=== PATIENT | female | born 1995 | race Caucasian/White ===

== ENCOUNTER 2021-01-31 12:05 | Inpatient (IN) | payer BC, OTHER ==
[~2021-01-31 12:05] MED LIST: Bupivacaine 0.25% 10 ML SDV ONE
[2021-01-31] MEDS ORDERED: Sodium Chloride 0.9% 10 ML Syringe FLUSH PRN (12:08)
[2021-01-31] MEDS ORDERED: Nalbuphine 10 MG/1 ML Vial IVPUSH PRN (12:08)
[2021-01-31] MEDS ORDERED: Ondansetron 4 MG/2 ML SDV IVPUSH PRN (12:08)
--- NOTE | 2021-01-31 12:14 | PCM.LDHP ---
L&D History of Present Illness - General Date of Service: 01/31/21 Admit Problem/Dx: Patient Status Order with Admit Dx/Problem 01/31/21 12:09 Patient Status [ADT] Routine Admission Diagnosis/Problem Admission Diagnosis/Problem Normal in third trimester Source of Information: Patient History Limitations: Reports: No Limitations - History of Present Illness Introduction:: Patient is a 25 y/o at 40 5/7 wks who presents for IOL. Doing well. Good FM. No other concerns - Related Data Allergies/Adverse Reactions: Allergies Allergy/AdvReac Type Severity Reaction Status Date / Time black pepper AdvReac Stomach Verified 05/08/18 12:02 Upset sucrose AdvReac Stomach Verified 05/08/18 12:03 Upset Home Medications: Home Meds Pnv No.95/Ferrous Fum/Folic AC [ Vitamin Tablet] 1 tab PO DAILY 05/04/18 [History] Past Medical History [employer]F [employer] WORK WITH [employer] History: Reports: : 2 Para: 1 LMP (Approximate): - Past Surgical History Musculoskeletal Surgical History: Reports: Arthroscopic Procedure (knee surgery) Social & Family History - Tobacco Use Tobacco Use Status *Q: Never Tobacco User - Alcohol Use Alcohol Use History: No - Recreational Drug Use Recreational Drug Use: No - Sexual History Sexual History: Reports: Single Partner H&P Review of Systems - Review of Systems: Review Of Systems: See Below General: Reports: No Symptoms Pulmonary: Reports: No Symptoms Cardiovascular: Reports: No Symptoms Gastrointestinal: Reports: No Symptoms Genitourinary: Reports: No Symptoms Musculoskeletal: Reports: No Symptoms Psychiatric: Reports: No Symptoms Neurological: Reports: No Symptoms Immunologic: Reports: No Symptoms L&D Exam - Exam Exam: See Below - OB Specific Contraction Intensity: Irritability Movement: Active Heart Tones: Present Heart Tones per Min: 135 Heart Rate (FHR) Variability: Moderate (6-25 bmp) Presentation: Vertex - Martinez Score Martinez Score Cervix Position: Midposition Martinez Score Consistency: Soft Martinez Score Effacement: 51-70% Martinez Score Dilation: 1-2 cm (2-3) Martinez Score 's Station: -2 Martinez Score Total: 7 - Exam General: Alert, Oriented, Cooperative Lungs: Clear to Auscultation, Normal Respiratory Effort Cardiovascular: Regular Rate, Regular Rhythm GI/Abdominal Exam: Soft, Non-Tender Genitourinary: Normal external exam Extremities: Normal Inspection Skin: Warm, Dry, Intact - Patient Data Result Diagrams: 01/31/21 12:28 - Problem List (1) Post-dates SNOMED Code(s): 96312174 ICD Code: O48.0 - POST-TERM Status: Acute Current Visit: Yes Qualifiers: Post-term type: 40-42 weeks gestation Qualified Code(s): O48.0 - Post-term Problem List Initiated/Reviewed/Updated: Yes Orders Last 24hrs: Active Orders 24 hr Category Date Time Status Patient Status [ADT] Routine ADT 01/31/21 12:09 Ordered Communication Order [RC] ASDIRECTED Care 01/31/21 12:09 Ordered Communication Order [RC] ASDIRECTED Care 01/31/21 12:09 Ordered Communication Order [RC] ASDIRECTED Care 01/31/21 12:09 Ordered Non Stress Test [RC] PER UNIT ROUTINE Care 01/31/21 12:09 Ordered Notify Provider [RC] ASDIRECTED Care 01/31/21 12:09 Ordered Notify Provider [RC] PRN Care 01/31/21 12:09 Ordered Peripheral IV Care [RC] . DIRECTED Care 01/31/21 12:09 Ordered Up ad Nicky [RC] ASDIRECTED Care 01/31/21 12:09 Ordered Vaginal Exam [RC] ASDIRECTED Care 01/31/21 12:09 Ordered Vital Signs [RC] ASDIRECTED Care 01/31/21 12:09 Ordered Regular Diet [DIET] Diet 01/31/21 Lunch Ordered CBC W/O DIFF,HEMOGRAM [HEME] Routine Lab 01/31/21 12:08 Ordered CORONAVIRUS COVID-19 ROXI [MOLEC] Routine Lab 01/31/21 12:13 Ordered HEP C VIRUS AB [REF] Routine Lab 01/31/21 12:12 Ordered RAPID PLASMA REAGIN,RPR [CHEM] Routine Lab 01/31/21 12:09 Ordered TYPE AND SCREEN [BBK] Routine Lab 01/31/21 12:08 Ordered Lactated Ringers [Ringers, Lactated] 1,000 ml Med 01/31/21 12:15 Ordered IV ASDIRECTED Nalbuphine [Nubain] Med 01/31/21 12:08 Ordered 10 mg IVPUSH Q2H PRN Ondansetron [Zofran] Med 01/31/21 12:08 Ordered 4 mg IVPUSH Q4H PRN Oxytocin/Lactated Ringers [Pitocin in LR 10 Units/1,000 Med 01/31/21 12:15 Ordered ML] 10 unit in 1,000 ml IV .CONTINUOUS Oxytocin/Lactated Ringers [Pitocin in LR 10 Units/1,000 Med 01/31/21 12:15 Ordered ML] 10 unit in 1,000 ml IV TITRATE Sodium Chloride 0.9% [Saline Flush] Med 01/31/21 12:08 Ordered 10 ml FLUSH ASDIRECTED PRN Electronic Heart Tones Internal [WOMSER] Per Unit Oth 01/31/21 12:09 Ordered Routine Peripheral IV Insertion Adult [OM.PC] Routine Oth 01/31/21 12:09 Ordered Resuscitation Status Routine Resus Stat 01/31/21 12:08 Ordered Medication Orders Oxytocin/Lactated Ringer's (Pitocin In Lr 10 Units/1,000 Ml) 10 unit in 1,000 mls @ 12 mls/hr IV TITRATE BRAULIO; Protocol Oxytocin/Lactated Ringer's (Pitocin In Lr 10 Units/1,000 Ml) 10 unit in 1,000 mls @ 500 mls/hr IV .CONTINUOUS BRAULIO Lactated Ringer's (Ringers, Lactated) 1,000 mls @ 40 mls/hr IV ASDIRECTED BRAULIO Nalbuphine HCl (Nalbuphine 10 Mg/1 Ml Vial) 10 mg IVPUSH Q2H PRN PRN Reason: Pain Ondansetron HCl (Ondansetron 4 Mg/2 Ml Sdv) 4 mg IVPUSH Q4H PRN PRN Reason: Nausea/Vomiting Sodium Chloride (Sodium Chloride 0.9% 10 Ml Syringe) 10 ml FLUSH ASDIRECTED PRN PRN Reason: Keep Vein Open Assessment/Plan Comment:: * Labs * GBS negative * AROM and pitocin for IOL * Pain management per patient preference * Anticipate
[2021-01-31] MEDS ORDERED: Oxytocin/Lactated Ringers 10 UNIT/1,000 ML BAG IV SCH ×2 (12:15)
[2021-01-31] MEDS ORDERED: Bupivacaine/fentaNYL/NS 100 ML Bag EPIDUR PRN (12:19)
[2021-01-31] MEDS ORDERED: fentaNYL 100 MCG/2 ML SDV EPIDUR PRN (12:19)
[2021-01-31] MEDS ORDERED: ePHEDrine 50 MG/ML SDV IVPUSH PRN (12:19)
[2021-01-31] MEDS ORDERED: diphenhydrAMINE 50 MG/ML SDV IVPUSH PRN (12:19)
[2021-01-31] MEDS: Lactated Ringers 1,000 ML IV SCH ×4 (14:59→16:59)
--- NOTE | 2021-01-31 15:07 | PCM.PREANE ---
Preanesthetic Assessment - Procedure Proposed Procedure: oscar - Anesthesia/Transfusion/Family Hx Anesthesia History: Prior Anesthesia Without Reaction Family History of Anesthesia Reaction: No Transfusion History: No Prior Transfusion(s) Type of Transfusion Reactions: Reports: Unknown - Review of Systems General: No Symptoms Pulmonary: No Symptoms Cardiovascular: No Symptoms Gastrointestinal: No Symptoms Neurological: No Symptoms Other: Reports: None - Physical Assessment Vital Signs: Last Vital Signs Temp 99.2 F 01/31/21 12:09 Pulse 124 H 01/31/21 12:09 Resp 16 01/31/21 12:09 BP 114/75 01/31/21 12:09 Pulse Ox 95 01/31/21 12:09 Height: 5 ft 4 in Weight: 73.936 kg ASA Class: 2 Mental Status: Alert & Oriented x3 Airway Class: Mallampati = 1 Dentition: Reports: Normal Dentition Thyro-Mental Finger Breadths: 3 Mouth Opening Finger Breadths: 3 Lungs: Clear to Auscultation, Normal Respiratory Effort Cardiovascular: Regular Rate, Regular Rhythm - Lab Values: Laboratory Last Values WBC 10.21 K/mm3 (3.98-10.04) H 01/31/21 12:28 RBC 3.75 M/mm3 (3.98-5.22) L 01/31/21 12:28 Hgb 10.9 gm/dl (11.2-15.7) L D 01/31/21 12:28 Hct 32.6 % (34.1-44.9) L 01/31/21 12:28 MCV 86.9 fl (79.4-94.8) 01/31/21 12:28 MCH 29.1 pg (25.6-32.2) 01/31/21 12:28 MCHC 33.4 g/dl (32.2-35.5) 01/31/21 12:28 RDW Std Deviation 38.9 fL (36.4-46.3) 01/31/21 12:28 Plt Count 195 K/mm3 (182-369) 01/31/21 12:28 MPV 11.1 fl (9.4-12.3) 01/31/21 12:28 SARS-CoV-2 RNA (ROXI) Negative (NEGATIVE) 01/31/21 12:55 Blood Type A POSITIVE 01/31/21 12:28 Gel Antibody Screen Negative 01/31/21 12:28 - Allergies Allergies/Adverse Reactions: Allergies Allergy/AdvReac Type Severity Reaction Status Date / Time black pepper AdvReac Stomach Verified 05/08/18 12:02 Upset sucrose AdvReac Stomach Verified 05/08/18 12:03 Upset - Blood Blood Available: No - Acknowledgements Anesthesia Type Planned: Epidural Pt an Appropriate Candidate for the Planned Anesthesia: Yes Alternatives and Risks of Anesthesia Discussed w Pt/Guardian: Yes Pt/Guardian Understands and Agrees with Anesthesia Plan: Yes PreAnesthesia Questionnaire Cardiovascular History: Reports: None Respiratory History: Reports: None Gastrointestinal History: Reports: None [employer] History: Reports: : 2 Para: 1 Musculoskeletal History: Reports: Other (See Below) Other Musculoskeletal History: knee surgery in 2007 Neurological History: Reports: None Psychiatric History: Reports: None Endocrine/Metabolic History: Reports: None Oncologic (Cancer) History: Reports: None - Past Surgical History Musculoskeletal Surgical History: Reports: Arthroscopic Procedure Dermatological Surgical History: Reports: None - SUBSTANCE USE Tobacco Use Status *Q: Never Tobacco User Tobacco Use Within Last Twelve Months: No Second Hand Smoke Exposure: No Days Per Week of Alcohol Use: 3 Recreational Drug Use History: No - HOME MEDS Home Medications: Home Meds Pnv No.95/Ferrous Fum/Folic AC [ Vitamin Tablet] 1 tab PO DAILY 05/04/18 [History] - CURRENT (IN HOUSE) MEDS Current Meds: Current Medications Diphenhydramine HCl (Diphenhydramine 50 Mg/Ml Sdv) 25 mg IVPUSH Q6H PRN PRN Reason: pruritis Ephedrine Sulfate (Ephedrine 50 Mg/Ml Sdv) 5 mg IVPUSH ASDIRECTED PRN PRN Reason: Hypotension Fentanyl (Fentanyl 100 Mcg/2 Ml Sdv) 100 mcg EPIDUR Q3H PRN PRN Reason: Pain Last Admin: 01/31/21 15:00 Dose: 100 mcg Documented by: Fentanyl/Bupivacaine HCl (Bupivacaine/Fentanyl/Ns 100 Ml Bag) 100 ml EPIDUR ASDIRECTED PRN PRN Reason: Pain Last Admin: 01/31/21 15:00 Dose: 100 ml Documented by: Oxytocin/Lactated Ringer's (Pitocin In Lr 10 Units/1,000 Ml) 10 unit in 1,000 mls @ 12 mls/hr IV TITRATE BRAULIO; Protocol Oxytocin/Lactated Ringer's (Pitocin In Lr 10 Units/1,000 Ml) 10 unit in 1,000 mls @ 500 mls/hr IV .CONTINUOUS BRAULIO Lactated Ringer's (Ringers, Lactated) 1,000 mls @ 40 mls/hr IV ASDIRECTED BRAULIO Last Admin: 01/31/21 14:59 Dose: 40 mls/hr Documented by: Nalbuphine HCl (Nalbuphine 10 Mg/1 Ml Vial) 10 mg IVPUSH Q2H PRN PRN Reason: Pain Ondansetron HCl (Ondansetron 4 Mg/2 Ml Sdv) 4 mg IVPUSH Q4H PRN PRN Reason: Nausea/Vomiting Sodium Chloride (Sodium Chloride 0.9% 10 Ml Syringe) 10 ml FLUSH ASDIRECTED PRN PRN Reason: Keep Vein Open
--- NOTE | 2021-01-31 19:17 | PCM.DEL ---
L & D Note - General Info Date of Service: 01/31/21 - Delivery Note Labor: Induced by ARM, Induced by Oxytocin Delivery Outcome: Livebirth Infant Delivery Method: Spontaneous Vaginal Delivery-Single Infant Delivery Mode: Spontaneous Presentation: Left Occiput Anterior (OLEG) Nuchal Cord: Present, Reduced Anesthesia Type: Epidural Amniotic Fluid Description: Clear Episiotomy Type: None Laceration: None Placenta: Intact, Spontaneous Cord: 3 Vessels Estimated Blood Loss: 100 : Bulb Syringe, Stimulated, Warmed, [place] Used, Warmer Used Delivery Comments (Free Text/Narrative):: Patient found to be complete and began pushing. With maternal pushing effort head delivered from OLEG presentation. Nuchal cord present and reduced. With gentle downward traction shoulders and body delivered. placed on maternal abdomen. Cord clamped and cut. Cord blood obtained. placenta allowed time to separate and expelled intact. Inspection of perineum showed no lacerations - General Info Date of Service: 01/31/21 - Patient Data Vitals - Most Recent: Last Vital Signs Temp 37.3 C 01/31/21 12:09 Pulse 124 H 01/31/21 12:09 Resp 16 01/31/21 12:09 BP 114/75 01/31/21 12:09 Pulse Ox 95 01/31/21 12:09 Weight - Most Recent: 73.936 kg Lab Results Last 24 Hours: Laboratory Results - last 24 hr 01/31/21 01/31/21 01/31/21 Range/Units 12:28 12:28 12:28 WBC 10.21 H (3.98-10.04) K/mm3 RBC 3.75 L (3.98-5.22) M/mm3 Hgb 10.9 L D (11.2-15.7) gm/dl Hct 32.6 L (34.1-44.9) % MCV 86.9 (79.4-94.8) fl MCH 29.1 (25.6-32.2) pg MCHC 33.4 (32.2-35.5) g/dl RDW Std Deviation 38.9 (36.4-46.3) fL Plt Count 195 (182-369) K/mm3 MPV 11.1 (9.4-12.3) fl RPR Non-reactive (NONREACTIVE) SARS-CoV-2 RNA (ROXI) (NEGATIVE) Blood Type A POSITIVE Gel Antibody Screen Negative 01/31/21 Range/Units 12:55 WBC (3.98-10.04) K/mm3 RBC (3.98-5.22) M/mm3 Hgb (11.2-15.7) gm/dl Hct (34.1-44.9) % MCV (79.4-94.8) fl MCH (25.6-32.2) pg MCHC (32.2-35.5) g/dl RDW Std Deviation (36.4-46.3) fL Plt Count (182-369) K/mm3 MPV (9.4-12.3) fl RPR (NONREACTIVE) SARS-CoV-2 RNA (ROXI) Negative (NEGATIVE) Blood Type Gel Antibody Screen Med Orders - Current: Current Medications Diphenhydramine HCl (Diphenhydramine 50 Mg/Ml Sdv) 25 mg IVPUSH Q6H PRN PRN Reason: pruritis Ephedrine Sulfate (Ephedrine 50 Mg/Ml Sdv) 5 mg IVPUSH ASDIRECTED PRN PRN Reason: Hypotension Last Admin: 01/31/21 17:16 Dose: 5 mg Documented by: Fentanyl (Fentanyl 100 Mcg/2 Ml Sdv) 100 mcg EPIDUR Q3H PRN PRN Reason: Pain Last Admin: 01/31/21 15:00 Dose: 100 mcg Documented by: Fentanyl/Bupivacaine HCl (Bupivacaine/Fentanyl/Ns 100 Ml Bag) 100 ml EPIDUR ASDIRECTED PRN PRN Reason: Pain Last Admin: 01/31/21 15:00 Dose: 100 ml Documented by: Oxytocin/Lactated Ringer's (Pitocin In Lr 10 Units/1,000 Ml) 10 unit in 1,000 mls @ 12 mls/hr IV TITRATE BRAULIO; Protocol Last Titration: 01/31/21 17:30 Dose: 4 munits/min, 24 mls/hr Documented by: Oxytocin/Lactated Ringer's (Pitocin In Lr 10 Units/1,000 Ml) 10 unit in 1,000 mls @ 500 mls/hr IV .CONTINUOUS BRAULIO Lactated Ringer's (Ringers, Lactated) 1,000 mls @ 40 mls/hr IV ASDIRECTED BRAULIO Last Admin: 01/31/21 16:59 Dose: 40 mls/hr Documented by: Nalbuphine HCl (Nalbuphine 10 Mg/1 Ml Vial) 10 mg IVPUSH Q2H PRN PRN Reason: Pain Ondansetron HCl (Ondansetron 4 Mg/2 Ml Sdv) 4 mg IVPUSH Q4H PRN PRN Reason: Nausea/Vomiting Sodium Chloride (Sodium Chloride 0.9% 10 Ml Syringe) 10 ml FLUSH ASDIRECTED PRN PRN Reason: Keep Vein Open - Problem List & Annotations (1) Post-dates SNOMED Code(s): 47418635 Code(s): O48.0 - POST-TERM Status: Acute Current Visit: Yes Qualifiers: Post-term type: 40-42 weeks gestation Qualified Code(s): O48.0 - Post-term (2) Vaginal delivery SNOMED Code(s): 579322205 Code(s): O80 - ENCOUNTER FOR FULL-TERM UNCOMPLICATED DELIVERY Status: Acute Current Visit: No - Problem List Review Problem List Initiated/Reviewed/Updated: Yes - My Orders Last 24 Hours: My Active Orders 01/31/21 Lunch Regular Diet [DIET] 01/31/21 12:08 Nalbuphine [Nubain] 10 mg IVPUSH Q2H PRN Ondansetron [Zofran] 4 mg IVPUSH Q4H PRN Sodium Chloride 0.9% [Saline Flush] 10 ml FLUSH ASDIRECTED PRN Resuscitation Status Routine 01/31/21 12:09 Patient Status [ADT] Routine Communication Order [RC] ASDIRECTED Communication Order [RC] ASDIRECTED Communication Order [RC] ASDIRECTED Notify Provider [RC] ASDIRECTED Notify Provider [RC] PRN Up ad Nicky [RC] ASDIRECTED Vital Signs [RC] ASDIRECTED Electronic Heart Tones Internal [WOMSER] Per Unit Routine Peripheral IV Insertion Adult [OM.PC] Routine 01/31/21 12:15 Lactated Ringers [Ringers, Lactated] 1,000 ml IV ASDIRECTED Oxytocin/Lactated Ringers [Pitocin in LR 10 Units/1,000 ML] 10 unit in 1,000 ml IV .CONTINUOUS Oxytocin/Lactated Ringers [Pitocin in LR 10 Units/1,000 ML] 10 unit in 1,000 ml IV TITRATE 01/31/21 12:28 HEP C VIRUS AB [REF] Routine - Assessment Assessment:: PPD#0 - Plan Plan:: * Routine cares * Breast feeding * Discharge home in 1-2 days
[2021-01-31] MEDS ORDERED: Docusate Sodium 100 MG Cap PO PRN (19:28)
[2021-01-31] MEDS ORDERED: Witch Hazel Medicated Pads 40/Jar TOP PRN (19:28)
[2021-01-31] MEDS ORDERED: Acetaminophen 325 MG Tab PO PRN (19:28)
[2021-01-31] MEDS ORDERED: Benzocaine/Menthol 20%-0.5% Spray 56 GM Canister TOP PRN (19:28)
[2021-02-01] MEDS: Ibuprofen 600 MG Tab PO PRN ×2 (02:34→10:46)
--- NOTE | 2021-02-01 07:09 | PCM.PNPP ---
- General Info Date of Service: 02/01/21 Functional Status: Reports: Pain Controlled, Tolerating Diet, Ambulating, Urinating - Review of Systems General: Reports: No Symptoms Pulmonary: Reports: No Symptoms Cardiovascular: Reports: No Symptoms Gastrointestinal: Reports: No Symptoms Genitourinary: Reports: No Symptoms Musculoskeletal: Reports: No Symptoms Skin: Reports: No Symptoms Neurological: Reports: No Symptoms - Patient Data Vital Signs - Most Recent: Last Vital Signs Temp 36.6 C 02/01/21 02:35 Pulse 88 02/01/21 02:35 Resp 14 02/01/21 02:35 BP 110/60 02/01/21 02:35 Pulse Ox 96 02/01/21 02:35 Weight - Most Recent: 73.936 kg I&O - Last 24 Hours: Intake & Output 01/31/21 02/01/21 02/01/21 22:59 06:59 14:59 Output Total 683 Balance -683 Lab Results - Last 24 Hours: Laboratory Results - last 24 hr 01/31/21 01/31/21 01/31/21 Range/Units 12:28 12:28 12:28 WBC 10.21 H (3.98-10.04) K/mm3 RBC 3.75 L (3.98-5.22) M/mm3 Hgb 10.9 L D (11.2-15.7) gm/dl Hct 32.6 L (34.1-44.9) % MCV 86.9 (79.4-94.8) fl MCH 29.1 (25.6-32.2) pg MCHC 33.4 (32.2-35.5) g/dl RDW Std Deviation 38.9 (36.4-46.3) fL Plt Count 195 (182-369) K/mm3 MPV 11.1 (9.4-12.3) fl RPR Non-reactive (NONREACTIVE) SARS-CoV-2 RNA (ROXI) (NEGATIVE) Blood Type A POSITIVE Gel Antibody Screen Negative 01/31/21 Range/Units 12:55 WBC (3.98-10.04) K/mm3 RBC (3.98-5.22) M/mm3 Hgb (11.2-15.7) gm/dl Hct (34.1-44.9) % MCV (79.4-94.8) fl MCH (25.6-32.2) pg MCHC (32.2-35.5) g/dl RDW Std Deviation (36.4-46.3) fL Plt Count (182-369) K/mm3 MPV (9.4-12.3) fl RPR (NONREACTIVE) SARS-CoV-2 RNA (ROXI) Negative (NEGATIVE) Blood Type Gel Antibody Screen Med Orders - Current: Current Medications Acetaminophen (Acetaminophen 325 Mg Tab) 650 mg PO Q4H PRN PRN Reason: mild pain or fever Benzocaine/Menthol (Benzocaine/Menthol 20%-0.5% [place] 56 Gm Canister) 0 gm TOP ASDIRECTED PRN PRN Reason: Perineal Comfort Measure Last Admin: 01/31/21 20:30 Dose: 1 can Documented by: Docusate Sodium (Docusate Sodium 100 Mg Cap) 100 mg PO BID PRN PRN Reason: Constipation Ibuprofen (Ibuprofen 600 Mg Tab) 600 mg PO Q6H PRN PRN Reason: Mild pain or fever Last Admin: 02/01/21 02:34 Dose: 600 mg Documented by: Priscilla Frank (Priscilla Frank Medicated Pads 40/Jar) 1 pad TOP ASDIRECTED PRN PRN Reason: Perineal Comfort Measure Last Admin: 01/31/21 20:29 Dose: 1 tub Documented by: Discontinued Medications Diphenhydramine HCl (Diphenhydramine 50 Mg/Ml Sdv) 25 mg IVPUSH Q6H PRN PRN Reason: pruritis Ephedrine Sulfate (Ephedrine 50 Mg/Ml Sdv) 5 mg IVPUSH ASDIRECTED PRN PRN Reason: Hypotension Last Admin: 01/31/21 17:16 Dose: 5 mg Documented by: Fentanyl (Fentanyl 100 Mcg/2 Ml Sdv) 100 mcg EPIDUR Q3H PRN PRN Reason: Pain Last Admin: 01/31/21 15:00 Dose: 100 mcg Documented by: Fentanyl/Bupivacaine HCl (Bupivacaine/Fentanyl/Ns 100 Ml Bag) 100 ml EPIDUR ASDIRECTED PRN PRN Reason: Pain Last Admin: 01/31/21 15:00 Dose: 100 ml Documented by: Oxytocin/Lactated Ringer's (Pitocin In Lr 10 Units/1,000 Ml) 10 unit in 1,000 mls @ 12 mls/hr IV TITRATE BRAULIO; Protocol Last Titration: 01/31/21 18:00 Dose: 6 munits/min, 36 mls/hr Documented by: Oxytocin/Lactated Ringer's (Pitocin In Lr 10 Units/1,000 Ml) 10 unit in 1,000 mls @ 500 mls/hr IV .CONTINUOUS BRAULIO Lactated Ringer's (Ringers, Lactated) 1,000 mls @ 40 mls/hr IV ASDIRECTED BRAULIO Last Admin: 01/31/21 16:59 Dose: 40 mls/hr Documented by: Nalbuphine HCl (Nalbuphine 10 Mg/1 Ml Vial) 10 mg IVPUSH Q2H PRN PRN Reason: Pain Ondansetron HCl (Ondansetron 4 Mg/2 Ml Sdv) 4 mg IVPUSH Q4H PRN PRN Reason: Nausea/Vomiting Sodium Chloride (Sodium Chloride 0.9% 10 Ml Syringe) 10 ml FLUSH ASDIRECTED PRN PRN Reason: Keep Vein Open - Infant Interaction Disposition, : [place] in Room with Family Interaction: Holding Infant Feeding: Breastfed Infant; Nursed Well Support Person: - Recovery Exam Fundal Tone: Firm Fundal Level: 1 Fingerbreadths Below Umbilicus Fundal Placement: Midline Lochia Amount: Small Lochia Color: Rubra/Red Perineum Description: Intact, Minimal Bruising/Swelling Bladder Status: Voiding - Exam General: Alert, Oriented, Cooperative GI/Abdominal Exam: Soft, Non-Tender - Problem List & Annotations (1) Post-dates SNOMED Code(s): 54033821 Code(s): O48.0 - POST-TERM Status: Acute Current Visit: Yes Qualifiers: Post-term type: 40-42 weeks gestation Qualified Code(s): O48.0 - Post-term (2) Vaginal delivery SNOMED Code(s): 518347798 Code(s): O80 - ENCOUNTER FOR FULL-TERM UNCOMPLICATED DELIVERY Status: Acute Current Visit: No - Problem List Review Problem List Initiated/Reviewed/Updated: Yes - My Orders Last 24 Hours: My Active Orders 01/31/21 12:08 Resuscitation Status Routine 01/31/21 12:28 HEP C VIRUS AB [REF] Routine 01/31/21 Dinner Regular Diet [DIET] 01/31/21 19:28 Acetaminophen [TylenoL] 650 mg PO Q4H PRN Benzocaine/Menthol [Dermoplast Pain Relief [place]] See Dose Instructions TOP ASDIRECTED PRN Docusate Sodium [Colace] 100 mg PO BID PRN Ibuprofen [Motrin] 600 mg PO Q6H PRN witch Lisa [Tucks] 1 pad TOP ASDIRECTED PRN 01/31/21 19:28 Activity as Tolerated [RC] PER UNIT ROUTINE Vital Signs [RC] ,,, Assess Lochia [WOMSER] Per Unit Routine Assess Uterine Involution [WOMSER] Per Unit Routine Breast Pump [WOMSER] Per Unit Routine Ice Therapy [OM.PC] Per Unit Routine Perineal Care [OM.PC] Per Unit Routine Peripheral IV Discontinue [OM.PC] Routine Sitz Bath [OM.PC] Per Unit Routine 01/31/21 19:30 Heat Therapy [OM.PC] PRN 02/01/21 19:30 Heat Therapy [OM.PC] PRN - Assessment Assessment:: PPD#1 - Plan Plan:: * Routine cares * Breast feeding * Discharge home today
--- NOTE | 2021-02-01 07:10 | PCM.DCSUM1 ---
Discharge Summary - Discharge Data Discharge Date: 02/01/21 Discharge Disposition: Home, Self-Care 01 Condition: Good - Referral to Home Health Primary Care Physician: Elizabeth Hernandez MD - Discharge Diagnosis/Problem(s) (1) Post-dates SNOMED Code(s): 00874585 ICD Code: O48.0 - POST-TERM Status: Acute Current Visit: Yes Qualifiers: Post-term type: 40-42 weeks gestation Qualified Code(s): O48.0 - Post-term (2) Vaginal delivery SNOMED Code(s): 314880541 ICD Code: O80 - ENCOUNTER FOR FULL-TERM UNCOMPLICATED DELIVERY Status: Acute Current Visit: No - Patient Summary/Data Complications: None Consults: None Recommended Follow-up Testing/Procedures: Follow up in 3 weeks for check Hospital Course: 25 y/o at 40 5/7 wks presented for IOL. Done with pitocin and AROM. Progressed well to complete dilation and underwent an uncomplicated . See delivery note. did well and was discharged home on PPD#1 - Patient Instructions Diet: Regular Diet as Tolerated Activity: As Tolerated Activity, Other: Pelvic rest for 6 weeks Driving: May Drive Today Showering/Bathing: May Shower Showering/Bathing, Other: May Bathe Notify Provider of: Fever, Increased Pain, Swelling and Redness, Drainage, Nausea and/or Vomiting - Discharge Plan *PRESCRIPTION DRUG MONITORING PROGRAM REVIEWED*: No *COPY OF PRESCRIPTION DRUG MONITORING REPORT IN PATIENT GEOVANNY: No Home Medications: Home Meds Pnv No.95/Ferrous Fum/Folic AC [ Vitamin Tablet] 1 tab PO DAILY 05/04/18 [History] Ibuprofen [Motrin] 600 mg PO Q6H PRN tablet 02/01/21 [Rx] Referrals: Elizabeth Hernandez MD [Primary Care Provider] - (3 weeks for check ) - Discharge Summary/Plan Comment DC Time >30 min.: No - Patient Data Vitals - Most Recent: Last Vital Signs Temp 36.6 C 02/01/21 02:35 Pulse 88 02/01/21 02:35 Resp 14 02/01/21 02:35 BP 110/60 02/01/21 02:35 Pulse Ox 96 02/01/21 02:35 Weight - Most Recent: 73.936 kg I&O - Last 24 hours: Intake & Output 01/31/21 02/01/21 02/01/21 22:59 06:59 14:59 Output Total 683 Balance -683 Lab Results - Last 24 hrs: Laboratory Results - last 24 hr 01/31/21 01/31/21 01/31/21 Range/Units 12:28 12:28 12:28 WBC 10.21 H (3.98-10.04) K/mm3 RBC 3.75 L (3.98-5.22) M/mm3 Hgb 10.9 L D (11.2-15.7) gm/dl Hct 32.6 L (34.1-44.9) % MCV 86.9 (79.4-94.8) fl MCH 29.1 (25.6-32.2) pg MCHC 33.4 (32.2-35.5) g/dl RDW Std Deviation 38.9 (36.4-46.3) fL Plt Count 195 (182-369) K/mm3 MPV 11.1 (9.4-12.3) fl RPR Non-reactive (NONREACTIVE) SARS-CoV-2 RNA (ROXI) (NEGATIVE) Blood Type A POSITIVE Gel Antibody Screen Negative 01/31/21 Range/Units 12:55 WBC (3.98-10.04) K/mm3 RBC (3.98-5.22) M/mm3 Hgb (11.2-15.7) gm/dl Hct (34.1-44.9) % MCV (79.4-94.8) fl MCH (25.6-32.2) pg MCHC (32.2-35.5) g/dl RDW Std Deviation (36.4-46.3) fL Plt Count (182-369) K/mm3 MPV (9.4-12.3) fl RPR (NONREACTIVE) SARS-CoV-2 RNA (ROXI) Negative (NEGATIVE) Blood Type Gel Antibody Screen Med Orders - Current: Current Medications Acetaminophen (Acetaminophen 325 Mg Tab) 650 mg PO Q4H PRN PRN Reason: mild pain or fever Benzocaine/Menthol (Benzocaine/Menthol 20%-0.5% [place] 56 Gm Canister) 0 gm TOP ASDIRECTED PRN PRN Reason: Perineal Comfort Measure Last Admin: 01/31/21 20:30 Dose: 1 can Documented by: Docusate Sodium (Docusate Sodium 100 Mg Cap) 100 mg PO BID PRN PRN Reason: Constipation Ibuprofen (Ibuprofen 600 Mg Tab) 600 mg PO Q6H PRN PRN Reason: Mild pain or fever Last Admin: 02/01/21 02:34 Dose: 600 mg Documented by: Priscilla Frank (Priscilla Frank Medicated Pads 40/Jar) 1 pad TOP ASDIRECTED PRN PRN Reason: Perineal Comfort Measure Last Admin: 01/31/21 20:29 Dose: 1 tub Documented by: Discontinued Medications Diphenhydramine HCl (Diphenhydramine 50 Mg/Ml Sdv) 25 mg IVPUSH Q6H PRN PRN Reason: pruritis Ephedrine Sulfate (Ephedrine 50 Mg/Ml Sdv) 5 mg IVPUSH ASDIRECTED PRN PRN Reason: Hypotension Last Admin: 01/31/21 17:16 Dose: 5 mg Documented by: Fentanyl (Fentanyl 100 Mcg/2 Ml Sdv) 100 mcg EPIDUR Q3H PRN PRN Reason: Pain Last Admin: 01/31/21 15:00 Dose: 100 mcg Documented by: Fentanyl/Bupivacaine HCl (Bupivacaine/Fentanyl/Ns 100 Ml Bag) 100 ml EPIDUR ASDIRECTED PRN PRN Reason: Pain Last Admin: 01/31/21 15:00 Dose: 100 ml Documented by: Oxytocin/Lactated Ringer's (Pitocin In Lr 10 Units/1,000 Ml) 10 unit in 1,000 mls @ 12 mls/hr IV TITRATE BRAULIO; Protocol Last Titration: 01/31/21 18:00 Dose: 6 munits/min, 36 mls/hr Documented by: Oxytocin/Lactated Ringer's (Pitocin In Lr 10 Units/1,000 Ml) 10 unit in 1,000 mls @ 500 mls/hr IV .CONTINUOUS BRAULIO Lactated Ringer's (Ringers, Lactated) 1,000 mls @ 40 mls/hr IV ASDIRECTED BRAULIO Last Admin: 01/31/21 16:59 Dose: 40 mls/hr Documented by: Nalbuphine HCl (Nalbuphine 10 Mg/1 Ml Vial) 10 mg IVPUSH Q2H PRN PRN Reason: Pain Ondansetron HCl (Ondansetron 4 Mg/2 Ml Sdv) 4 mg IVPUSH Q4H PRN PRN Reason: Nausea/Vomiting Sodium Chloride (Sodium Chloride 0.9% 10 Ml Syringe) 10 ml FLUSH ASDIRECTED PRN PRN Reason: Keep Vein Open
--- NOTE | 2021-02-01 08:16 | PCM48HPAN ---
Post Anesthesia Note - EVALUATION WITHIN 48HRS OF ANESTHETIC Vital Signs in Normal Range: Yes Patient Participated in Evaluation: Yes Respiratory Function Stable: Yes Airway Patent: Yes Cardiovascular Function Stable: Yes Hydration Status Stable: Yes Pain Control Satisfactory: Yes Nausea and Vomiting Control Satisfactory: Yes Mental Status Recovered: Yes Vital Signs: Last Vital Signs Temp 36.6 C 02/01/21 02:35 Pulse 88 02/01/21 02:35 Resp 14 02/01/21 02:35 BP 110/60 02/01/21 02:35 Pulse Ox 96 02/01/21 02:35 - COMMENTS/OBSERVATIONS Free Text/Narrative:: Sitting up having breakfast to concerns or questions regarding her labor epidural at this time.
== END 2021-02-01 19:38 | disposition home or self-care (01) | DRG 560 ==
LOC: JD.OB 12:05 → OBSVTOIN 18:58 → JD.OB 18:58
PROVIDERS: ADMIT Obstetrics & Gynecology; ATTEND Obstetrics & Gynecology
PROC: 10E0XZZ Delivery of Products of Conception, External Approach (ICD-10-PCS; principal; 2021-01-31)
PROC: 10907ZC Drainage of Amniotic Fluid, Therapeutic from Products of Conception, Via Natural or Artificial Opening (ICD-10-PCS; 2021-01-31)
PROC: 3E033VJ Introduction of Other Hormone into Peripheral Vein, Percutaneous Approach (ICD-10-PCS; 2021-01-31)
PROC: 3E0R3BZ Introduction of Anesthetic Agent into Spinal Canal, Percutaneous Approach (ICD-10-PCS; 2021-01-31)
DX: O48.0 Post-term pregnancy (principal); Z3A.40 40 weeks gestation of pregnancy; Z37.0 Single live birth; Z91.011 Allergy to milk products; O69.81X0 Labor and delivery complicated by cord around neck, without compression, not applicable or unspecified; Z20.822 Contact with and (suspected) exposure to COVID-19
CPT/HCPCS: 01967; 36415; 51702; 59025; 59409; 85027; 86592; 86803; 86850; 86900; 86901; A9270-GY; J2590; J3010; J3490; J7120; U0002

== ENCOUNTER → 2021-04-28 | Day surgery (SDC) | payer BC, OTHER ==
[~2021-04-28] MED LIST changes: -Bupivacaine 0.25% 10 ML SDV ONE; +Bupivacaine 0.5%/EPINEPHrine 1:200,000 50 ML MDV ONE; +Dexamethasone 4 MG/ML 5 ML MDV ONE; +HYDROmorphone 0.5 MG/0.5 ML Syringe IVPUSH PRN; +HYDROmorphone 0.5 MG/0.5 ML Syringe ONE; +Ketorolac 30 MG/ML SDV ONE; +Lactated Ringers 1,000 ML IV SCH; +Lactated Ringers 1,000 ML ONE; +Lidocaine 1% 6 ML ONE; +Midazolam 1 MG/ML 2 ML SDV ONE; +Ondansetron 4 MG/2 ML SDV ONE; +Propofol 200 MG/20 ML SDV ONE; +Succinylcholine/Sod PF 100 MG/5 ML SYRINGE IV ONE; +cefOXitin 1 GM in Premix Bag 1 BAG IV ONE; +cefOXitin 2 GM in Premix Bag 1 BAG IV SCH; +fentaNYL 100 MCG/2 ML SDV IVPUSH PRN; +fentaNYL 250 MCG/5 ML SDV ONE
--- NOTE | 2021-04-28 16:48 | PCM.HP.2 ---
H&P History of Present Illness - General Date of Service: 04/28/21 Admit Problem/Dx: Admission Diagnosis/Problem Admission Diagnosis/Problem Appendicitis Source of Information: Patient, Provider History Limitations: Reports: No Limitations - History of Present Illness Initial Comments - Free Text/Narative: Ms. Steinberg presented to the [facility] this afternoon with new onset right lower quadrant pain and was found to have evidence of acute appendicitis on CT scan. Right Lower Abdomen Pain Score (Numeric/FACES): 5 - Related Data Allergies/Adverse Reactions: Allergies Allergy/AdvReac Type Severity Reaction Status Date / Time black pepper AdvReac Severe Stomach Verified 04/28/21 16:35 Upset sucrose AdvReac Severe Stomach Verified 04/28/21 16:35 Upset Home Medications: Home Meds Pnv No.95/Ferrous Fum/Folic AC [ Vitamin Tablet] 1 tab PO DAILY 05/04/18 [History] Ibuprofen [Motrin] 600 mg PO Q6H PRN tablet 02/01/21 [Rx] oxyCODONE 5 mg PO Q4H PRN #15 tab 04/28/21 [Rx] Past Medical History Cardiovascular History: Reports: None Respiratory History: Reports: None Gastrointestinal History: Reports: None DELIVERY REP History: Reports: Musculoskeletal History: Reports: Other (See Below) Other Musculoskeletal History: knee surgery in 2007 Neurological History: Reports: None Psychiatric History: Reports: None Endocrine/Metabolic History: Reports: None Oncologic (Cancer) History: Reports: None - Past Surgical History Musculoskeletal Surgical History: Reports: Arthroscopic Procedure Dermatological Surgical History: Reports: None Social & Family History - Family History Family Medical History: No Pertinent Family History - Tobacco Use Tobacco Use Status *Q: Never Tobacco User - Sexual History Sexual History: Reports: Single Partner H&P Review of Systems - Review of Systems: Review Of Systems: See Below General: Reports: Malaise HEENT: Reports: No Symptoms Pulmonary: Reports: No Symptoms Cardiovascular: Reports: No Symptoms Gastrointestinal: Reports: Abdominal Pain Genitourinary: Reports: No Symptoms Musculoskeletal: Reports: No Symptoms Skin: Reports: No Symptoms Psychiatric: Reports: No Symptoms Neurological: Reports: No Symptoms Hematologic/Lymphatic: Reports: No Symptoms Immunologic: Reports: No Symptoms Exam - Exam Exam: See Below - Vital Signs Vital Signs: Last Vital Signs Temp 36.4 C 07/29/21 16:29 Pulse 89 04/28/21 16:29 Resp 20 04/28/21 16:29 BP 103/84 04/28/21 16:29 Pulse Ox 99 04/28/21 16:29 Weight: 63.588 kg - Exam General: Alert, Oriented, Cooperative HEENT: Conjunctiva Clear Neck: Supple Lungs: Clear to Auscultation, Normal Respiratory Effort Cardiovascular: Regular Rate, Regular Rhythm GI/Abdominal Exam: Soft, Other ([place] point tenderness) (Female) Exam: Deferred Back Exam: Normal Inspection Extremities: Normal Inspection Skin: Warm, Dry, Intact Neuro Extensive - Mental Status: Alert, Oriented x3 Psychiatric: Normal Mood Sepsis Event Note - Evaluation Sepsis Screening Result: No Definite Risk - Focused Exam Vital Signs: Vital Signs Temp Pulse Resp BP Pulse Ox 04/28/21 16:29 36.4 C 89 20 103/84 99 Problem List Initiated/Reviewed/Updated: Yes Orders Last 24hrs: Active Orders 24 hr Category Date Time Status Patient Status [ADT] Routine ADT 04/28/21 16:23 Active CORONAVIRUS COVID-19 ROXI [MOLEC] Stat Lab 04/28/21 16:28 Received Lactated Ringers [Ringers, Lactated] 1,000 ml Med 04/28/21 16:30 Active IV ASDIRECTED cefOXitin [Mefoxin in Dextrose,Iso-Osm 1 GM/50 ML] 1 gm Med 04/28/21 16:42 Ordered Premix Bag 1 bag IV ONETIME Schedule Procedure [COMM] Stat Oth 04/28/21 16:24 Ordered Medication Orders Lactated Ringer's (Ringers, Lactated) 1,000 mls @ 75 mls/hr IV ASDIRECTED BRAULIO Cefoxitin Sodium 1 gm/ Premix 50 mls @ 100 mls/hr IV ONETIME ONE Stop: 04/28/21 17:11 Assessment/Plan Comment:: Acute appendicitis Plan for laparoscopic appendectomy - Mortality Measure Prognosis:: Good
--- NOTE | 2021-04-28 16:51 | PCM.PREANE ---
Preanesthetic Assessment - Procedure Proposed Procedure: Laparoscopic appendectomy - Anesthesia/Transfusion/Family Hx Anesthesia History: Prior Anesthesia Without Reaction Transfusion History: No Prior Transfusion(s) Type of Transfusion Reactions: Reports: Unknown - Review of Systems General: No Symptoms Pulmonary: No Symptoms Cardiovascular: No Symptoms Gastrointestinal: No Symptoms Neurological: No Symptoms Other: Reports: None - Physical Assessment NPO Status Date: 04/28/21 NPO Status Time: 14:00 Vital Signs: Last Vital Signs Temp 97.5 F 04/28/21 16:29 Pulse 89 04/28/21 16:29 Resp 20 04/28/21 16:29 BP 103/84 04/28/21 16:29 Pulse Ox 99 04/28/21 16:29 Height: 1.68 m Weight: 63.588 kg ASA Class: 1E Mental Status: Alert & Oriented x3 Airway Class: Mallampati = 1 Dentition: Reports: Normal Dentition Thyro-Mental Finger Breadths: 3 Mouth Opening Finger Breadths: 3 ROM/Head Extension: Full Lungs: Clear to Auscultation, Normal Respiratory Effort Cardiovascular: Regular Rate, Regular Rhythm - Allergies Allergies/Adverse Reactions: Allergies Allergy/AdvReac Type Severity Reaction Status Date / Time black pepper AdvReac Severe Stomach Verified 04/28/21 16:35 Upset sucrose AdvReac Severe Stomach Verified 04/28/21 16:35 Upset - Acknowledgements Anesthesia Type Planned: General Anesthesia Pt an Appropriate Candidate for the Planned Anesthesia: Yes Alternatives and Risks of Anesthesia Discussed w Pt/Guardian: Yes Pt/Guardian Understands and Agrees with Anesthesia Plan: Yes PreAnesthesia Questionnaire Cardiovascular History: Reports: None Respiratory History: Reports: None Gastrointestinal History: Reports: None [employer]EFITS History: Reports: Musculoskeletal History: Reports: Other (See Below) Other Musculoskeletal History: knee surgery in 2008 Neurological History: Reports: None Psychiatric History: Reports: None Endocrine/Metabolic History: Reports: None Oncologic (Cancer) History: Reports: None - Past Surgical History Musculoskeletal Surgical History: Reports: Arthroscopic Procedure Dermatological Surgical History: Reports: None - SUBSTANCE USE Tobacco Use Status *Q: Never Tobacco User - HOME MEDS Home Medications: Home Meds Pnv No.95/Ferrous Fum/Folic AC [ Vitamin Tablet] 1 tab PO DAILY 05/04/18 [History] Ibuprofen [Motrin] 600 mg PO Q6H PRN tablet 02/01/21 [Rx] - CURRENT (IN HOUSE) MEDS Current Meds: Current Medications Lactated Ringer's (Ringers, Lactated) 1,000 mls @ 75 mls/hr IV ASDIRECTED BRAULIO
--- NOTE | 2021-04-28 16:58 | PCM.PRNOTE ---
- Free Text/Narrative Note: Date: 04/28/2021 Operation: laparoscopic appendectomy Indication: CT scan showing acute appendicitis in patient with right lower quadrant pain Surgeon: Deo Naidu MD Antibiotic: 2 g cefoxitin IV pre-incision EBL: 10 cc DVT Ppx: SCDs Findings: acute appendicitis without gangrene or perforation Detailed Report: The patient was taken to the operating room and placed on the table in supine position. Timeout was performed and general endotracheal anesthesia was initiated. The abdomen was prepped and draped in usual sterile fashion. A Veress needle was placed at the left upper quadrant in order to establish pneumoperitoneum. Once pressure reached 15 mmHg, air was aspirated just inferior to the umbilicus with a needle and syringe. A curvilinear incision was made just inferior to the umbilicus to permit passage of a bladed 12 mm trocar. A 5 mm 30 degree laparoscope was inserted through the trocar into the abdomen and abdominal contents were inspected. The Veress needle was removed under laparoscopic visualization; there appeared to be no inadvertent injury from Veress needle placement. Additional 5 mm ports were placed under laparoscopic visualization; 1 in the suprapubic region and one in the left lower quadrant. The laparoscope was placed through the left lateral port and the patient was positioned in Trendelenburg and rotated towards the surgeon standing on the patient's left side. The cecum and appendix were identified. The appendix appeared inflamed. The appendix was grasped near its base and retracted anteriorly and inferiorly, putting tension on the mesoappendix. A window was made at the base of the appendix with the [place] LigaSure. A 30 mm white load on a laparoscopic powered linear cutting stapler was used to divide the appendix at its base. The mesoappendix was divided using the [place] LigaSure. The specimen was placed in an Endo Catch and removed through the umbilical port site. The dissection field was clean and dry at completion of appendectomy after suctioning up a small amount of reactive fluid. Omentum was tucked into the dissection bed. The 12 mm port site was closed at the level of fascia using 0 Vicryl on a laparoscopic suture passer. Pneumoperitoneum was released and remaining ports were removed. All skin incisions were closed with running subcuticular Vicryl suture and dressed with Dermabond. The patient tolerated the operation well, was extubated in the operating room and transferred to the recovery unit in good condition with plan to discharge home later this evening.
--- NOTE | 2021-04-28 18:38 | PCM.POSTAN ---
POST ANESTHESIA ASSESSMENT - MENTAL STATUS Mental Status: Somnolent - VITAL SIGNS Vital Signs: Fisrt postop VSs at 18:15 96/58 76 HR 16 RR 100% 97.7 F Last Vital Signs Temp 97.8 F 04/28/21 18:30 Pulse 75 04/28/21 18:30 Resp 19 04/28/21 18:30 BP 95/65 04/28/21 18:30 Pulse Ox 98 04/28/21 18:30 - RESPIRATORY Respiratory Status: Respiratory Rate WNL, Airway Patent (oral a/w removed in PACU), O2 Saturation Stable, Supplemental Oxygen - CARDIOVASCULAR CV Status: Pulse Rate WNL, Blood Pressure Stable - GASTROINTESTINAL GI Status: No Symptoms - PAIN Pain Score: 0 - POST OP HYDRATION Hydration Status: Adequate & Stable
--- NOTE | 2021-04-28 18:51 | PCM48HPAN ---
Post Anesthesia Note - EVALUATION WITHIN 48HRS OF ANESTHETIC Vital Signs in Normal Range: Yes Patient Participated in Evaluation: Yes Respiratory Function Stable: Yes Airway Patent: Yes Cardiovascular Function Stable: Yes Hydration Status Stable: Yes Pain Control Satisfactory: Yes Nausea and Vomiting Control Satisfactory: Yes Mental Status Recovered: Yes Vital Signs: Last Vital Signs Temp 98.0 F 04/28/21 18:45 Pulse 85 04/28/21 18:45 Resp 20 04/28/21 18:45 BP 104/72 04/28/21 18:45 Pulse Ox 98 04/28/21 18:45 - COMMENTS/OBSERVATIONS Free Text/Narrative:: Preparing for home discharge
== END | disposition home or self-care (01) ==
LOC: JD.ED 16:08 → JD.SDS 16:42
PROVIDERS: ATTEND Surgery
DX: K35.30 Acute appendicitis with localized peritonitis, without perforation or gangrene (principal); Z91.018 Allergy to other foods; Z01.812 Encounter for preprocedural laboratory examination; Z20.822 Contact with and (suspected) exposure to COVID-19
CPT/HCPCS: 44970; 87635; J0330; J1100; J1885; J2250; J2405; J2704; J2710; J3010; J3490; J7120; 00840; 99140; J1170; U0002

== ENCOUNTER 2024-12-26 06:59 | Inpatient (IN) | payer OTHER ==
[2024-12-26] MEDS ORDERED: ePHEDrine 50 MG/ML SDV ONE (07:00)
[2024-12-26] MEDS ORDERED: Sodium Chloride 0.9% 10 ML Syringe FLUSH PRN (07:09)
[2024-12-26] MEDS ORDERED: Lidocaine 1% 50 ML MDV INJECT PRN (07:09)
[2024-12-26] MEDS ORDERED: Ondansetron 4 MG/2 ML SDV IVPUSH PRN (07:09)
[2024-12-26] MEDS ORDERED: Nalbuphine 10 MG/1 ML Vial IVPUSH PRN (07:09)
[2024-12-26] MEDS ORDERED: Oxytocin/0.9 % Sodium Chloride 30 UNIT/500 ML BAG IV SCH (07:15)
[2024-12-26 07:36] LABS: BASOPHILS ABSOLUTE AUTO 0.1 K/mm3 (0.0-0.2); BASOPHILS PERCENT AUTO 0.8 % (0.0-1.0); EOSINOPHILS ABSOLUTE AUTO 0.1 K/mm3 (0.0-0.4); EOSINOPHILS PERCENT AUTO 1.3 % (0.0-6.0); HEMATOCRIT 32.7 % (37.0-47.0); HEMOGLOBIN 11.6 gm/dl (12.0-16.0); IMMATURE GRAN ABSOLUTE AUTO 0.05 K/mm3 (0.00-0.05); IMMATURE GRAN PERCENT AUTO 0.6 % (0.0-0.4); LYMPHOCYTES ABSOLUTE AUTO 1.3 K/mm3 (1.0-4.8); LYMPHOCYTES PERCENT AUTO 16.2 % (24.0-44.0); MEAN CORPUSCULAR HEMOGLOBIN 31.9 pg (28.0-32.0); MEAN CORPUSCULAR HGB CONC 35.5 g/dl (32.0-36.0); MEAN CORPUSCULAR VOLUME 89.8 fl (83.0-99.0); MEAN PLATELET VOLUME 13.5 fl (9.4-12.3); MONOCYTES ABSOLUTE AUTO 0.8 K/mm3 (0.0-0.8); MONOCYTES PERCENT AUTO 9.7 % (0.0-8.0); NEUTROPHILS ABSOLUTE AUTO 5.6 K/mm3 (1.8-7.7); NEUTROPHILS PERCENT AUTO 71.4 % (41.0-71.0); RED BLOOD CELL COUNT 3.64 M/mm3 (4.10-5.30); WHITE BLOOD CELL COUNT,WBC 7.84 K/mm3 (3.9-11.3)
[2024-12-26 07:44] LABS: PLATELET COUNT,PLT 164 K/mm3 (150-400)
[2024-12-26 08:30] LABS: SLIDE REVIEW ABNORMAL SMEAR
[2024-12-26] MEDS: Lactated Ringers 1,000 ML IV SCH (08:52)
[2024-12-26] MEDS: Oxytocin/0.9 % Sodium Chloride 30 UNIT/500 ML BAG IV SCH (08:53)
[2024-12-26] MEDS ORDERED: Sodium Chloride 0.9% 10 ML Syringe FLUSH SCH (09:00)
[2024-12-26] MEDS ORDERED: ePHEDrine 50 MG/ML SDV IVPUSH PRN (10:08)
[2024-12-26] MEDS ORDERED: diphenhydrAMINE 50 MG/ML SDV IVPUSH PRN (10:08)
[2024-12-26] MEDS: Bupivacaine/fentaNYL/NS 100 ML Bag EPIDUR PRN (10:18)
[2024-12-26] MEDS ORDERED: Witch Hazel Medicated Pads 40/Jar TOP PRN (14:14)
[2024-12-26] MEDS ORDERED: Benzocaine/Menthol 20%-0.5% Spray 78 GM Cannister TOP PRN (14:14)
[2024-12-26] MEDS ORDERED: Acetaminophen 325 MG Tab PO PRN (14:14)
[2024-12-26] MEDS ORDERED: Docusate Sodium 100 MG Cap PO PRN (14:14)
[2024-12-26] MEDS: Ibuprofen 600 MG Tab PO SCH (20:22)
[2024-12-27] MEDS: Ibuprofen 600 MG Tab PO SCH (02:24)
== END 2024-12-27 14:15 | disposition home or self-care (01) | DRG 807 ==
LOC: JD.OBCHECK 06:59 → JD.OB 07:00 → JD.OBCHECK 07:09 → JD.OB 07:10 → OBSVTOIN 12:23 → JD.OB 12:24
PROVIDERS: ADMIT Obstetrics & Gynecology; ATTEND Obstetrics & Gynecology
PROC: 10E0XZZ Delivery of Products of Conception, External Approach (ICD-10-PCS; principal; 2024-12-26)
PROC: 10907ZC Drainage of Amniotic Fluid, Therapeutic from Products of Conception, Via Natural or Artificial Opening (ICD-10-PCS; 2024-12-26)
PROC: 3E033VJ Introduction of Other Hormone into Peripheral Vein, Percutaneous Approach (ICD-10-PCS; 2024-12-26)
PROC: 3E0R3BZ Introduction of Anesthetic Agent into Spinal Canal, Percutaneous Approach (ICD-10-PCS; 2024-12-26)
PROC: 00HU33Z Insertion of Infusion Device into Spinal Canal, Percutaneous Approach (ICD-10-PCS; 2024-12-26)
DX: O80 Encounter for full-term uncomplicated delivery (principal); Z37.0 Single live birth; Z3A.40 40 weeks gestation of pregnancy; Z90.49 Acquired absence of other specified parts of digestive tract
CPT/HCPCS: 36415; 51701; 59025; 59409; 85025; 86592; 86850; 86900; 86901; A9270-GY; J3490; J7120; J7999